=== PATIENT | female | born 1945 | race Caucasian/White ===

== ENCOUNTER 2022-09-14 18:53 | Emergency (ER) | payer MEDICARE, OTHER, SELFPAY ==
--- NOTE | ~2022-09-14 | XR_ITS ---
EXAMINATION: XR ABDOMEN KUB CLINICAL INDICATION: Constipation COMPARISON: None available. TECHNIQUE: AP view of the abdomen. FINDINGS: Stool and air seen throughout the colon with more prominent stool in the rectal region. No obstructive changes. No significant small bowel gas. No obvious free air on the supine films XR/XR KUB IMPRESSION: Stool and air seen throughout the colon with more prominent stool in the rectal region.
[2022-09-14 19:27] VITALS: BP 129/77; PULSE 79; RESP 16; TEMP 36.8; O2SAT 99; BMI 24.2
--- NOTE | 2022-09-14 19:28 | ED_ITS ---
HPI - Abdominal Pain General Chief Complaint: Abdominal Pain <HÉCTOR Nicholas - Last Filed: 09/14/22 19:49> Stated Complaint: constipation <HÉCTOR Nicholas - Last Filed: 09/14/22 19:49> Time Seen by Provider: 09/14/22 20:07 <HÉCTOR Nicholas - Last Filed: 09/14/22 19:49> Source: patient and family <Elijah Alberts MD - Last Filed: 09/14/22 22:38> Mode of arrival: ambulatory <Elijah Alberts MD - Last Filed: 09/14/22 22:38> Limitations: no limitations <Elijah Alberts MD - Last Filed: 09/14/22 22:38> History of Present Illness HPI narrative: Patient history of dementia been constipated for last 3 days increased pain when she tries to move bowel tried MiraLax and suppository without much relief no nausea no vomiting no history of constipation in the past <Elijah Alberts MD - Last Filed: 09/14/22 22:38> Related Data Allergies/Adverse Reactions: Allergies Allergy/AdvReac Type Severity Reaction Status Date / Time No Known Allergies Allergy Verified 09/14/22 19:26 <HÉCTOR Nichoals - Last Filed: 09/14/22 19:49> Review of Systems Review of Systems Yes all other systems are reviewed and are negative <Elijah Alberts MD - Last Filed: 09/14/22 22:38> [facility] Past Medical History Medical History: Medical History Dementia Hyperlipemia <HÉCTOR Nicholas - Last Filed: 09/14/22 19:49> Social History Social History: Social History Alcohol intake: never Smoked in Last 30 Days: No Use of substances other than those prescribed or required for medical reasons: No Advance Directives: No Advance Directives Information Provided: No <HÉCTOR Nicholas - Last Filed: 09/14/22 19:49> Physical Exam ED Vital Signs: Vital Signs - 24 hr 09/14/22 19:27 09/14/22 20:11 Temperature 98.2 F 97.7 F Pulse Rate 79 62 Respiratory Rate 16 16 Blood Pressure 129/77 124/65 Pulse Oximetry 99 96 Oxygen Delivery Method Room Air Room Air BMI result Body Mass Index 24.2 <HÉCTOR Nicholas - Last Filed: 09/14/22 19:49> Vital Signs - 24 hr 09/14/22 19:27 09/14/22 20:11 Temperature 98.2 F 97.7 F Pulse Rate 79 62 Respiratory Rate 16 16 Blood Pressure 129/77 124/65 Pulse Oximetry 99 96 Oxygen Delivery Method Room Air Room Air BMI result Body Mass Index 24.2 <Elijah Alberts MD - Last Filed: 09/14/22 22:38> Appearance: Alert. Oriented X3. No acute distress. Eyes: PERRLA, No Nystagmus ENT: Pharynx normal. Oral Mucosa moist Neck: Normal inspection. Neck supple. CVS: Normal heart rate and rhythm. Pulses normal. Respiratory: No respiratory distress. Equal air entry bilateral, Abdomen: Soft and nontender. Bowel sounds are present, no mass palpable, no CVA tenderness rectal: Soft stool in the rectum Skin: Skin warm and dry. Normal skin color. Normal skin turgor. Extremities: No lower extremity edema. No calf tenderness Neuro: Oriented X 3. No motor deficit. No sensory deficit.No cerebellar signs , cranial nerves II-XII intact <Elijah Alberts MD - Last Filed: 09/14/22 22:38> Course Course Course Narrative: RME--76 yo F w/PMHx dementia, HTN, c/o constipation x3 days without BM or passing flatus. Admits to rectal discomfort, feels stool in vault. Reports passed small amount of stool with some blood on toilet paper [employer]. Denies nausea, vomiting or abdominal pain, or melena difficulty sitting during eval, uncomfortable, Abd soft w/mild suprapubic ttp Concern for impaction KUB ordered <HÉCTOR Nicholas - Last Filed: 09/14/22 19:49> Medical Decision Making Medical Decision Making MDM Narrative: Manual disimpaction was done patient went to bathroom and had a good bowel movement will discharge patient home patient feeling much better now <Elijah Alberts MD - Last Filed: 09/14/22 22:38> Medications Administered Discontinued Medications Generic Name Dose Route Start Last Admin Trade Name Freq PRN Reason Stop Dose Admin Lidocaine HCl 10 ml 09/14/22 20:58 09/14/22 21:54 Lidocaine Hcl 2 % Urojet 10 Ml Jel.Pf.Garrick TOPICAL 09/14/22 20:59 10 ml ONCE ONE Administration Sodium Biphosphate/Sodium Phosphate 133 ml 09/14/22 21:45 09/14/22 21:54 Sodium Phosphate,[place]-Dibasic 133 Ml Enema GA 09/14/22 21:46 133 ml ONCE ONE Administration <HÉCTOR Nicholas - Last Filed: 09/14/22 19:49> Medications Administered Discontinued Medications Generic Name Dose Route Start Last Admin Trade Name Freq PRN Reason Stop Dose Admin Lidocaine HCl 10 ml 09/14/22 20:58 09/14/22 21:54 Lidocaine Hcl 2 % Urojet 10 Ml Jel.Pf.Garrick TOPICAL 09/14/22 20:59 10 ml ONCE ONE Administration Sodium Biphosphate/Sodium Phosphate 133 ml 09/14/22 21:45 09/14/22 21:54 Sodium Phosphate,[place]-Dibasic 133 Ml Enema GA 09/14/22 21:46 133 ml ONCE ONE Administration <Elijah Alberts MD - Last Filed: 09/14/22 22:38> Discharge Plan Discharge Clinical Impression: Constipation <HÉCTOR Nicholas - Last Filed: 09/14/22 19:49> Patient Disposition: Home, Self-Care <HÉCTOR Nicholas - Last Filed: 09/14/22 19:49> Instructions: Constipation (ED) <HÉCTOR Nicholas - Last Filed: 09/14/22 19:49> Additional Instructions: Drink plenty of fluids MiraLax daily for constipation Follow with PCP Apply lidocaine viscous at the rectum for pain <HÉCTOR Nicholas - Last Filed: 09/14/22 19:49>
--- NOTE | 2022-09-14 20:00 | PC.NURSE ---
pt aox3, comes to ED with 3 days of constipation. reports severe rectal pain when attempting a BM. daughter at bedside.
[2022-09-14 20:11] VITALS: BP 124/65; PULSE 62; RESP 16; TEMP 36.5; O2SAT 96
--- OUTSIDE RECORDS SUMMARY | 2022-09-14 20:57 | XMS_ITS | Continuity of Care Document ---
:1945 Author Organization [facility] Address [address] [place] [address]- Care Team Providers Name Role Phone Not on Staff, PCP Primary Care Physician Unavailable Encounter [facility] [place] Date(s): 02/07/22 - 02/08/[address] [address]- Encounter Diagnosis COVID (Final) - 02/07/22 Hypoxia (Final) - 02/07/22 Syncope (Final) - 02/07/22 Discharge Disposition: A-D/C Home Attending Physician: Steve Tena MD Admitting Physician: Edmond Mercado MD Referring Physician: Not on Staff, Referring MD Allergies, Adverse Reactions, Alerts No Known Allergies Immunizations Given and Recorded Vaccine Date Status Refusal Reason SARS-CoV-2 (COVID-19) mRNA-1273 vaccine 10/06/21 Recorded SARS-CoV-2 (COVID-19) mRNA BNT-162b2 vac 09/10/20 Recorde d SARS-CoV-2 (COVID-19) mRNA BNT-162b2 vac 08/19/20 Recorde d influenza virus vaccine, inactivated 05/10/20 Recorded influenza virus vaccine, inactivated 04/03/19 Recorded influenza virus vaccine, inactivated 03/26/18 Recorded influenza virus vaccine, inactivated 06/14/17 Recorded influenza virus vaccine, inactivated 05/02/13 Recorded influenza virus vaccine, inactivated 04/12/12 Recorded influenza virus vaccine, inactivated 04/08/11 Recorded pneumococcal 13-valent vaccine 03/16/15 Recorded pneumococcal 23-valent vaccine 11/08/10 Recorded Zoster Vaccine Live 05/07/09 Recorded tetanus/diphtheria/pertussis, acel(Tdap) 09/22/08 Recorde d Medications donepezil 10 mg oral tablet 10 mg, 1, tablet, By Mouth, Daily at bedtime, # 90 tablet, Refills 0, Tot. Refills 0, Maintenance, 02/07/22 16:36:00 EDT, Print Requisition, Partial fill upon patient request if the prescription is fora schedule II opioid drug. Start Date: 02/07/22 Status: Orderedmemantine 10 mg oral tablet 1 tablet = 10 mg, By Mouth, 2 times a day, # 60 tablet, 5 Refills, Maintenance, 02/07/22 16:36:00 EDT, Tablet, Partial fill upon patient request if the prescription is for a schedule II opioid drug. Start Date: 02/07/22 Status: OrderedPaxlovid 150 mg-100 mg oral tablet See Instructions, 2 tabs of nirmatrelvir and + 1 tap of ritonavir bid for 5 days, # 30 tablet, 0 Refills, Maintenance, 02/08/22 9:46:00 EDT, [facility], Partial fill upon patient request if the prescription is for a schedule II opioid dr... Start Date: 02/08/22 Status: Orderedpravastatin 20 mg oral tablet 20 mg, 1, tablet, By Mouth, Daily, # 30 tablet, Refills 0, Tot. Refills 0, Maintenance, 02/07/22 16:35:00 EDT, Print Requisition, Partial fill upon patient request if the prescription is for a scheduleII opioid drug. Start Date: 02/07/22 Status: Ordered Problem List Condition Effective Dates Status Health Status Informant Alzheimer disease(Confirmed) Active COVID-19(Confirmed)1 02/08/22 Active Hyperlipidemia(Confirmed) Active 1Problem added by Discern Expert Results Radiology Reports Exam Date Time Procedure Performing Provider Status 02/07/22 10:56 AM Chest Portable Sindhu Brock; Yvonne (Christine soliz) Notes:(Chest Portable) Reason For Exam: Shortness of BreathRESULT: Chest Portable Examination: Portable chest performed on 02/07/2022. History: COVID positive. Shortness of breath. Findings: A frontal view of the chest is submitted without comparison. A cardiac loop recorder is noted. The cardiac silhouette is within normal limits for size. The lungsare clear. Bone islands within the right proximal humerus are seen. IMPRESSION: There is no acute cardiopulmonary disease. WSN: [id number] Ordering Physician: Angelina Amado Dictated By: Leonie CH , Pearl Eason Dictated Date/Time: 02/07/22 11:00 a Reviewed By: Pearl Hadley MD Signed By: Pearl Hadley MD Signed Date/Time: 02/07/22 11:00 am Transcribed By: PRISCILLA Transcribed Date/Time: 02/07/22 10:59 am Vital Signs Most recent to oldest 1 2 3 [Reference Range]: Height 153 cm 153 cm 153 cm (02/08/22 4:19 AM) (02/07/22 8:39 PM) (02/07/22 4:43 P M) Weight 50 kg 50 kg 50 kg (02/07/22 8:39 PM) (02/07/22 4:43 PM) (02/07/22 3:23 P M) Oxygen Saturation [94-100 96 % 96 % 99 % %] (02/08/22 10:42 AM) (02/08/22 4:19 AM) (02/08/22 12:00 AM) Pulse Rate [55-90 bpm] 69 bpm 56 bpm 64 bpm (02/08/22 10:42 AM) (02/08/22 6:00 AM) (02/08/22 4:19 AM) Body Mass Index 21.36 21.36 21.36 [18.5-24.99] (02/07/22 8:39 PM) (02/07/22 4:43 PM) (02/07/22 3:23 P M) Blood Pressure 116/77 mm Hg 121/77 mm Hg 103/63 mm Hg [90-138/55-84 mm Hg] (02/08/22 10:42 AM) (02/08/22 4:19 AM) (02/08/22 12:00 AM) Respiratory Rate [16-30 16 br/min 18 br/min 20 br/mi n br/min] (02/08/22 12:00 AM) (02/07/22 10:09 PM) (02/07/22 8:39 PM) Temperature [96.8-100.4 97.9 DegF 97.5 DegF 98.0 Deg F DegF] (02/08/22 10:42 AM) (02/08/22 4:19 AM) (02/08/22 12:00 AM) Mode of Delivery (Oxygen) Room air Room air Room a ir (02/08/22 10:42 AM) (02/08/22 4:19 AM) (02/08/22 12:00 AM) Blood pressure sites Arm, left Arm, left Arm, right (02/08/22 10:42 AM) (02/08/22 4:19 AM) (02/08/22 12:00 AM) Temperature Route Oral Oral Oral (02/08/22 10:42 AM) (02/08/22 4:19 AM) (02/08/22 12:00 AM) Dry Weight 50 kg 50 kg 50 kg (02/07/22 8:39 PM) (02/07/22 4:43 PM) (02/07/22 3:23 P M) Weight Obtained Via Patient/family stated (02/07/22 10:47 AM) Dry Weight Obtained Via Patient/family stated (02/07/22 10:47 AM)
--- NOTE | 2022-09-14 21:11 | PC.NURSE ---
this nurse pulled the lido for dr. delcid upon his request, night nurse nurse aware.
--- NOTE | 2022-09-14 21:11 | PC.NURSE ---
attempts digital disimpactement and directs pt to bathroom.
[2022-09-14] MEDS: Sodium Phosphate,Mono-Dibasic 133 ML ENEMA PR (21:54)
[2022-09-14] MEDS: Lidocaine HCl 2 % Urojet 10 ML JEL.PF.APP TOPICAL (21:54)
--- NOTE | 2022-09-14 21:54 | PC.NURSE ---
Fleets enema administered at this time.
[2022-09-14] MEDS: Lidocaine HCl Viscous 2 % 15 ML SOLUTION MUCOUS MEM (22:43)
== END 2022-09-14 23:06 | disposition home or self-care (01) ==
PROVIDERS: Emergency Provider Internal Medicine
DX: K59.00 Constipation, unspecified (principal); R10.13 Epigastric pain
CPT/HCPCS: 74018; 99284